=== PATIENT | female | born 1960 | race Caucasian/White ===

== ENCOUNTER → 2016-11-17 | Outpatient (CLI) | payer OTHER | LOC: FIMAGING 10:41 | PROVIDERS: ATTEND Internal Medicine | DX: Z12.31 Encounter for screening mammogram for malignant neoplasm of breast (principal) | CPT/HCPCS: G0202 ==

== ENCOUNTER 2017-04-05 07:19 | Emergency (ER) | payer OTHER ==
--- NOTE | 2017-04-05 07:23 | EDPHY ---
H & P Time Seen by Provider: 04/05/17 07:22 HPI/ROS: CHIEF COMPLAINT: Left eye redness and irritation HISTORY OF PRESENT ILLNESS: The patient presents the ED with a 1 day history of left eye redness and irritation. The patient did notice a subconjunctival hemorrhage in her left eye. She denies any history of trauma, Valsalva, coughing or eye rubbing. The patient denies changes to her vision. She is not anticoagulated. The patient denies additional acute complaints. She does have a history of chronic dry eyes and uses [id number] eyedrops for this condition. REVIEW OF SYSTEMS: A comprehensive 10 point review of systems is otherwise negative aside from elements mentioned in the history of present illness. Source: Patient Exam Limitations: No limitations - Family History Significant Family History: No pertinent family hx - Physical Exam Exam: Visual Acuity: noted from Nurse's notes. Pupils: equal round and reactive to light EOMI Skin: no proptosis, no periorbital erythema or swelling, no vesicles Conjunctivae: Subconjunctival hemorrhage noted left eye with minimal episcleritis Cornea: exam with fluorescein shows no evidence of corneal abrasion Anterior chamber: normal, no hyphema or hypopyon Constitutional: Initial Vital Signs Temperature (C) 36.9 C 04/05/17 07:21 Heart Rate 75 04/05/17 07:21 Respiratory Rate 18 04/05/17 07:21 Blood Pressure 121/86 H 04/05/17 07:21 O2 Sat (%) 98 04/05/17 07:21 Allergies/Adverse Reactions: codeine Allergy (Verified 04/05/17 07:24) Home Medications: Medication Instructions Recorded NK [No Known Home Meds] 04/05/17 Medical Decision Making ED Course/Re-evaluation: The patient presents to the ED with episcleritis and a small subconjunctival hemorrhage. The patient has no evidence of a corneal abrasion. Her visual acuity is intact. The patient has been informed that this is a benign likely self-limited condition and no additional treatment is indicated at this point time. She will continue to use for artificial tears for her chronic dry eyes. The patient will follow up with her regular prior authorization nurse or the on-call prior authorization nurse she has been referred to for unimproved symptoms. Departure - Departure Disposition: Home, Routine, Self-Care Clinical Impression: Subconjunctival hemorrhage of left eye Condition: Good Instructions: Subconjunctival Hemorrhage (ED) Additional Instructions: 1. Follow up with prior authorization nurse you have been referred to for any symptoms unimproved after 1-2 weeks. 2. Return to the ED immediately for increasing pain, visual impairment or other concerns. Referrals: Stu Pagan MD [Medical Doctor] - As per Instructions
[2017-04-05 07:24] VITALS: BP 121/86; PULSE 75; RESP 18; TEMP 98.4; O2SAT 98
[2017-04-05] MEDS ORDERED: FLUORESCEIN SODIUM 1 MG STRIP OP ONE ×2 (07:29→07:30)
[2017-04-05] MEDS ORDERED: PROPARACAINE 0.5% 15 ML OPHT DROP ONE (07:29)
[2017-04-05] MEDS ORDERED: PROPARACAINE 0.5% 15 ML OPHT DROP OP ONE (07:30)
== END 2017-04-05 07:44 | disposition home or self-care (01) ==
DX: H11.32 Conjunctival hemorrhage, left eye (principal)